=== PATIENT | male | born 1955 | race Caucasian/White ===

== ENCOUNTER 2023-03-15 10:12 | Emergency (ER) | payer MEDICARE, MEDICAID, SELFPAY ==
[2023-03-15 10:13] VITALS: BP 175/82; PULSE 69; RESP 14; TEMP 36.3; O2SAT 97; BMI 36.1
--- NOTE | 2023-03-15 10:54 | EKG12_ITS ---
Test Reason : Blood Pressure : / mmHG Vent. Rate : 070 BPM Atrial Rate : 070 BPM P-R Int : 150 ms QRS Dur : 092 ms QT Int : 432 ms P-R-T Axes : 065 030 029 degrees QTc Int : 466 ms Normal sinus rhythm Normal ECG Confirmed by IGOR KEATING, FINESSE ([id number]), news videotape editor SHA CHRISTINE ([id number]) on 03/20/2023 2:10:10 PM Referred By: Confirmed By:FINESSE COSTA MD
--- NOTE | 2023-03-15 10:55 | EX.ED.VIS.UR ---
HPI HPI - URI History of Present Illness Chief Complaint: Cough Detail of Chief Complaint: Cough and chest pain Informant: patient Narrative Narrative: Patient presents to the emergency department complaint of a cough and chest pain. Patient states that he had a cold that started initially 2 weeks ago and he got some Tessalon Perles for that. Patient thought that maybe he was getting better. 5 days ago he was moving some things to his shed and he was sweating and it was cold out and then since that time he had increased cough. He complains of a pain in his right mid back with cough and pain in the center of his chest that is worse with cough. Patient denies recent travel or surgery. Patient bringing up phlegm at times and now at times he is having small amount of blood noted in the sputum. No history of PE or DVT. Patient denies sick contacts. ROS ROS ED Review of Systems ROS Unobtainable: other Constitutional Constitutional ED: Reports lethargy; Denies chills, fever(s), sweats or weight loss Eyes Eyes: Denies blurry vision, change in vision or diplopia ENT ENT ED: Denies rhinorrhea or sore throat Cardiovascular Cardiovascular: Reports chest pain; Denies orthopnea or racing heartbeat Respiratory/Chest Respiratory/Chest: Reports cough, dyspnea and dyspnea on exertion; Denies orthopnea or sputum Gastrointestinal Gastrointestinal: Denies abdominal pain, diarrhea, nausea or vomiting Genitourinary Genitourinary ED: Denies dysuria, hematuria or urinary frequency Musculoskeletal Musculoskeletal: Denies arthralgias, back pain, myalgias or neck pain Integumentary Denies abscess, Abrasions or rash Neurologic Neurologic: Denies headache(s) or weakness Psychiatric Psychiatric: Denies anxiety, depression or suicidal thoughts Endocrine Endocrinology: Denies polydipsia, polyphagia or polyuria Hematologic/Lymphatic Hematologic/Lymphatic: Denies easy bleeding, easy bruising or lymphadenopathy Allergic/Immunologic Allergic/Immunologic ED: Denies mouth swelling, tongue swelling or urticaria PFSH PFSH Medical History no medical history Home Medications doxycycline monohydrate 100 mg capsule 100 mg PO BID #20 CAPSULES 03/15/23 [Rx Last Taken Unknown] Allergy/AdvReac Type Severity Reaction Status Date / Time No Known Allergies Allergy Verified 03/15/23 10:15 Social History Smoking Status: Former smoker EXAM Physical Exam Const Vital Signs: 03/15/23 10:13 03/15/23 11:13 03/15/23 11:13 Temperature 97.4 F L Temperature Source Temporal Pulse Rate 69 Respiratory Rate 14 Respiratory Effort Normal Non-Labored Respiratory Depth Normal Respiratory Pattern Normal Blood Pressure 175/82 H Blood Pressure Mean 113 Pulse Ox 97 Oxygen Delivery Method Room Air Room Air Room Air Positive well nourished and well developed General Appearance ED: well developed and NAD HEENT Reports TM's clear and moist mucous membranes normocephalic and atraumatic; Negative for trauma or tenderness Tympanic Membrane ED: Yes TM's clear Eyes PERRL and EOMs intact bilaterally General Eye ED: Negative for pale conjunctiva or scleral icterus Neck no lymphadenopathy, supple and no JVD General: Negative for tenderness Chest Wall inspection of chest normal and palpation of chest normal Chest: Negative for tenderness Resp normal respiratory effort and clear to auscultation bilaterally Effort and Inspection: Negative for respiratory distress or pain with movement Auscultation: Negative for rhonchi, wheezes or diminished lung sounds Cardio regular rate, regular rhythm, S1 normal heart sound, S2 normal heart sound and no murmurs Peripheral Pulses: pulses 2+ throughout GI normal to inspection, nondistended, normoactive bowel sounds, soft to palpation, non-tender, non-distended and no masses Back/Spine no CVA tenderness and no thoracic nor lumbar tenderness Extremity normal to inspection General Extremety ED: Negative for edema General Extremity: Negative for edema Neuro oriented x3, CN's II-XII intact bilaterally, no sensory deficits noted and gait normal Sensorium / Orientation: awake, alert, oriented to person, oriented to place and oriented to time Motor Exam: strength 5/5 throughout and strength abnormal Psych mental status grossly normal Skin no rashes or lesions noted and no wounds MDM MDM MDM Narrative Medical decision making narrative: Patient presents with URI symptoms and now pain with breathing in his chest. In the differential would be pneumonia versus pleurisy versus acute coronary syndrome or PE. IV line established. EKG obtained arrival shows sinus rhythm with rate of 70 bpm with no acute ST segment changes. CBC with differential showed a normal white count of 8.8 with hemoglobin of 12.7 and platelet count of 268. Chemistries unremarkable. Troponin was normal at 7. D-dimer was normal at less than 0.27. Patient had a chest x-ray that showed no evidence of infiltrate or pneumothorax or acute disease process. COVID and flu testing were negative. This point patient will be discharged to home. Clinically looks well. Suspect an upper respiratory infection with some irritation in the airway causing small amount of blood-tinged phlegm. Will cover with doxycycline. Advised to follow-up with primary care physician within next 5 to 7 days. Patient advised to return if increasing shortness of breath or persistent hemoptysis with clot or condition should worsen anyway. Lab Data Labs: Laboratory Results - last 24 hr 03/15/23 11:10 WBC 8.8 RBC 4.15 L Hgb 12.7 L Hct 39.4 L MCV 94.9 H MCH 30.6 MCHC 32.2 RDW Std Deviation 46.6 H RDW Coeff of Rani 13.3 Plt Count 268 MPV 9.2 Immature Gran % (Auto) 1.100 H Neut % (Auto) 74.7 H Lymph % (Auto) 14.7 L Prentiss % (Auto) 6.6 Eos % (Auto) 2.4 Baso % (Auto) 0.5 Absolute Neuts (auto) 6.5 Absolute Lymphs (auto) 1.29 Nucleated RBC % 0 D-Dimer Quant (PE/DVT) < 0.27 L Sodium 139 Potassium 3.7 Chloride 108 H Carbon Dioxide 27.0 Anion Gap 4 L BUN 8 Creatinine 0.79 Estim Creat Clear Calc 93.22 Est GFR (MDRD) Af Amer 126 Est GFR (MDRD) Non-Af 104 BUN/Creatinine Ratio 10.1 Glucose 133 H Calcium 8.1 L Troponin I High Sens 7 Radiography Diagnostic Testing: Clinical Impression(s) from Imaging Studies Chest X-Ray 03/15/23 11:20 IMPRESSION: No radiographic evidence of acute cardiopulmonary disease. Electronically Signed: Cesario Chapin MD at 11:39 EDT Reading Location ID and State: [address] [place] [address] Tel , Service support , 1 view chest x-ray obtained interpreted by myself as no evidence of infiltrate or pneumothorax or acute disease process. Radiology in agreement. EKG Initial EKG: Attestation: I personally reviewed and interpreted this EKG as follows: Comments: Sinus rhythm with a rate of 70 bpm with no acute ST segment changes Discharge Plan Triage Chief Complaint: Cough ED Provider: Tavo Maynard Dx/Rx/DC Orders Clinical Impression: Hemoptysis, URI (upper respiratory infection) Instructions: ED Upper Resp Infec Abx Tx, ED Hemoptysis Prescriptions: New doxycycline monohydrate 100 mg capsule 100 mg PO BID Qty: 20 0RF Primary Care Provider: Sayda Rosales NP Referrals: Sayda Rosales NP, [employer] [Primary Care Provider] - 5-7 Days Disposition Disposition: Home, Self Care
--- NOTE | 2023-03-15 10:59 | NURSING ---
NO OLD EKGS
[2023-03-15 11:13] VITALS: O2SAT 96
[2023-03-15] MEDS: 0.9% Normal Saline (1000mL) 1,000 ML 150 ML IV (11:14)
[2023-03-15 11:19] LABS: Absolute Lymphocyte Count 1.29 X10^3/uL (0.83-4.51); Absolute Neutrophil Count 6.5 X10^3/uL (2.0-7.7); Basophil# 0.04 X10^3/uL; Basophil% 0.5 % (0-1); Eosinophil# 0.21 X10^3/uL; Eosinophils% 2.4 % (0-5); Hematocrit 39.4 % (40-54); Hemoglobin 12.7 g/dL (13.0-16.5); Lymphocyte # 1.29 X10^3/ul (0.83-4.51); Lymphocyte % 14.7 % (19-41); Mean Corp Hgb Conc 32.2 g/dL (32-36); Mean Corpuscular Hgb 30.6 pg (27.0-32.0); Mean Corpuscular Volume 94.9 fL (80-94); Mean Platelet Vol. 9.2 fl (6.2-12.0); Monocyte# 0.58 X10^3/uL; Monocyte% 6.6 % (0-10); NRBC Flagged by Analyzer 0 % (0-5); Neutrophil # 6.53 X10^3/uL (2.7-7.7); Neutrophil % 74.7 % (47-70); Platelet Count 268 K/mm3 (150-450); RBC Distribution Width CV 13.3 % (11.6-14.6); RBC Distribution Width SD 46.6 fl (35.1-43.9); Red Blood Count 4.15 M/mm3 (4.6-6.2); White Blood Count 8.8 K/mm3 (4.4-11.0)
--- NOTE | 2023-03-15 11:20 | RAD_ITS ---
INDICATION: cough EXAMINATION/TECHNIQUE: X-RAY - XR Chest 1 View COMPARISON: FINDINGS: LINES/DEVICES: None. LUNGS: No consolidation, edema or effusion. No pneumothorax. MEDIASTINUM AND CARDIOVASCULAR STRUCTURES: Cardiac silhouette not enlarged. Central airways and mediastinal contour are unremarkable. BONES AND SOFT TISSUES: Unremarkable. RAD/Chest 1 View (Portable) IMPRESSION: No radiographic evidence of acute cardiopulmonary disease. Electronically Signed: Cesario Chapin MD at 11:39 EDT ,
[2023-03-15 11:32] LABS: D-Dimer Quantitative (DVT/PE) < 0.27 FEU/ug/m (0.27-0.49)
[2023-03-15 11:44] LABS: Anion Gap 4 (5-15); BUN 8 mg/dL (7-18); BUN/Creat Ratio 10.1 RATIO (10-20); Calcium,Total 8.1 mg/dL (8.5-10.1); Chloride 108 mmol/L (98-107); Creatinine, Serum 0.79 mg/dL (0.70-1.30); EST Glomerular Filtration Rate 104 mL/min (>60); Est Glom Filt Rate - Afr Amer 126 mL/min (>60); Estimated Creatinine Clearance 93.22 ml/min; Glucose 133 mg/dL (74-106); Potassium 3.7 mmol/L (3.5-5.1); Sodium Level 139 mmol/L (136-145); Troponin-I HS 7 pg/mL (3.0-78.0)
[2023-03-15 12:41] VITALS: BP 158/72; PULSE 71; RESP 16; O2SAT 95
== END 2023-03-15 12:46 | disposition home or self-care (01) ==
PROVIDERS: Emergency Provider Emergency Medicine; PCP Nurse Practitioner Family; Visit Provider Emergency Medicine
DX: J06.9 Acute upper respiratory infection, unspecified (principal); Z87.891 Personal history of nicotine dependence; R07.1 Chest pain on breathing; R04.2 Hemoptysis
CPT/HCPCS: 71045; 80048; 84484; 85025; 85379; 87428; 93005; 96360; 96361; 99284; J7030; A4216